=== PATIENT | female | born 1950 | race Caucasian/White ===

== ENCOUNTER 2024-01-31 10:00 | Day surgery (SDC) | payer MEDICARE ==
[2024-01-26 11:11] VITALS: BP 116/82
[~2024-01-31] VITALS: Ht 152.4 cm; Wt 71.4 kg
[~2024-01-31 10:00] MED LIST: ALLEGRA ALLERG180 MG PO; ATIVAN1 MG PO; ATORVASTATIN CA40 MG PO; CEFAZOLIN SODIUM 2 GM/20 ML SYR IV SCH; CIPROFLOXACIN500 MG PO; DULOXETINE HCL30 MG PO; IBLOOD GLUCOSE TEST STRIP 1 EA TEST VI PRN; LACTATED RINGER'S 1,000 ML IV SCH; LIDOCAINE HCL 1% 5 ML SDV INJ ONE; LIDOCAINE HCL 2% 5 ML SDV ONE; MACROBID 100 M100 MG PO; ONDANSETRON ODT8 MG PO; PREDNISONE20 MG PO; STOOL SOFTENER100 M1 PO; TRAMADOL HCL50 MG PO; propofoL 200 MG/20 ML VIAL ONE
[2024-01-31 10:32] VITALS: BP 126/77
[2024-01-31] MEDS ORDERED: ROCURONIUM BROMIDE 50 MG/5 ML SYR ONE (11:00)
[2024-01-31] MEDS ORDERED: iopamidoL 30 ML VIAL ONE (12:42)
[2024-01-31] MEDS ORDERED: OXYCODONE/APAP 5/325 TAB PO PRN (13:00)
[2024-01-31] MEDS ORDERED: TRAMADOL HCL 50 MG TAB PO PRN (13:00)
[2024-01-31] MEDS ORDERED: ondansetron HCL 4 MG/2 ML VIAL IV PRN (13:00)
[2024-01-31] MEDS ORDERED: HYDROmorphone HCL 1 MG/ML SYR IV PRN (13:00)
[2024-01-31] MEDS ORDERED: PHENAZOPYRIDINE HCL 95 MG TAB PO PRN (13:00)
[2024-01-31] MEDS ORDERED: fentaNYL citrate 100 MCG/2 ML VIAL ONE ×2 (13:10→14:06)
[2024-01-31] MEDS ORDERED: ondansetron HCL 4 MG/2 ML VIAL ONE (13:27)
[2024-01-31] MEDS ORDERED: ePHEDrine sulfate 50 MG/ML AMP ONE (13:29)
[2024-01-31] MEDS ORDERED: LACTATED RINGER'S 1,000 ML IV ONE (13:41)
[2024-01-31] MEDS ORDERED: SUGAMMADEX SODIUM 200 MG/2 ML ML ONE (14:12)
--- NOTE | 2024-01-31 14:43 | NUR ---
01/31/24 1443 JOSIAS ROSE 1428 PT ARRIVED TO PACU VIA STREACHER. REPORT TAKEN FROM DANAE PARRISH CRNA. PT AWAKE AND HAS NATURAL AIRWAY. PT RESPIRATIONS EVEN AND UNLABORED. PT ON RIGHT SIDE, AND SITTING UP. PT REPORTS NO PAIN OR NAUSEA AT THIS TIME. ALL MONITORS ATTACHED. 1440 PT SPOKE WITH DOCTOR. PT REPORTS 3/10 PAIN IN SURGICAL AREA, PT REPORTS THIS BEING TOLERABLE. PT REPORTS NO NAUSEA.
[2024-01-31 15:01] VITALS: BP 127/72
--- NOTE | 2024-01-31 15:06 | NUR ---
PT BACK TO ROOM FROM PACU ON RA. RECEIVED REPORT FROM JOSIAS CARRANZA. PT IS AWAKE. RESP EVEN AND UNLABORED. PROVIDED PT WITH CRACKERS, JELLO, AND WATER. PT WOULD LIKE SOMETHING FOR PAIN. AT BEDSIDE. CALL LIGHT WITHIN REACH.
--- NOTE | 2024-01-31 15:10 | NUR ---
1509-PAIN MEDICATION GIVEN PER EMAR. PT EATING JELLO. WARM BLANKET PROVIDED. AT BEDSIDE. CALL LIGHT WITHIN REACH.
[2024-01-31 15:59] VITALS: BP 135/79
--- NOTE | 2024-01-31 16:00 | NUR ---
AT THIS TIME PATIENT HAS MET ALL OF HER DISCHARGE CRITERIA AND SHE EXPRESSES THAT SHE FEELS READY TO GO HOME. PAIN IS UNDER CONTROL AND AT A TOLERABLE LEVEL FOR HER. SHE HAS BEEN EATING AND DRINKING WITHOUT NAUSEA/VOMITING. SHE HAS AMBULATED. PATIENT HAS A SEARS CATHETER IN PLACE AND IT IS DRAINING LIGHT PINK URINE. THIS RN EMPTIED SEARS CATHETER BAG PRIOR TO DISCHARGE (SEE I/O'S). SEARS CATHETER WAS SECURED TO PATIENTS RIGHT LEG WITH SECUREMENT DEVICE AND PATIENT WAS ALLOWED TO GET DRESSED.
--- NOTE | 2024-01-31 16:15 | NUR ---
Discharge instructions were reviewed with patient and spouse. All questions answered and both patient and spouse expressed understanding of all instructions. I explained the need for the urinary catheter bag to be below the level of the bladder for adequat draining. Paper prescription was given to patient upon discharge and explained that it would need to be taken to a pharmacy in order to get filled and they understood. Patient was then discharged from the unit via wheelchair. to take patient home via private vehicle.
--- NOTE | 2024-02-03 16:27 | PATH ---
[facility] [address] [place], [place] [address] Signed SPECIMEN(S): A BLADDER LESION SPECIMEN SOURCE: A. BLADDER LESION CLINICAL HISTORY: Pre: Bladder tumor. Post: TURBT. FINAL PATHOLOGIC DIAGNOSIS: Bladder lesion, TURBT: - Fragments of muscularis propria with chronic inflammation and focal calcification. - Neegative for evidence of residual invasive urothelial carcinoma on these sections. - Inflamed scant urothelium and squamous epithelium with mild atypical features. COMMENT: As part of [facility] Quality Improvement Program, this case was reviewed by another member of our pathology staff. JVR:amado MICROSCOPIC EXAMINATION: Histologic sections of all submitted blocks are examined by light microscopy. These findings, together with the gross examination, support the pathologic diagnosis. Immunohistochemical stains are performed with appropriate controls on block A1 and show the following: - Cytokeratin AE1/AE3: Negative for occult carcinoma. - Cytokeratin 20: Negative for occult carcinoma. JVR:dks GROSS DESCRIPTION: The specimen, labeled and designated "Bj bladder lesion," is received in formalin and consists of irregular shaped pink-guevara friable tissue fragments that aggregate measure 2.5 x 0.6 x 0.2 cm. Entirely submitted in (A1). JS (under the direct supervision of a pathologist) The Gross Description was prepared using a voice recognition system. The report was reviewed for accuracy; however, sound-alike word errors, addition and/or deletions may occur. If there is any PATIENT NAME: TERRENCE GRIMALDO PATHOLOGY DATE OF : 48 REPORT #: [id number] PHYSICIAN: KRYSTEN CUNHA PCP: RENE COY REPORT IS CONFIDENTIAL AND NOT TO BE RELEASED WITHOUT AUTHORIZATION [facility] [address] [place] [place] [address] Signed question about this report, please contact Client Services. ADDITIONAL NOTES: Immunohistochemical and/or in situ hybridization studies were performed on this case with the appropriate positive controls that react as expected. This test was developed and its performance characteristics determined by [facility]. It has not been cleared or approved by the U.S. Food and Drug Administration. The FDA has determined that such clearance or approval is not necessary. This test is used for clinical purposes. It should not be regarded as investigational or for research. [facility] is certified under the Clinical Laboratory Improvement Amendments of 1988 (CLIA) as qualified to perform high complexity clinical laboratory testing. This assay has not been validated for specimens that have been decalcified. PERFORMING LABORATORY: Technical component was performed by [facility], [address] [place] [id number] (CLIA# [id number]). Professional interpretation was performed by [facility] - [facility], [address] [place] [id number] (CLIA#: [id number]). Diagnostician: Tobin Hawkins MD Pathologist Electronically Signed 02/03/2024 Copies: ~ PATIENT NAME: TERRENCE GRIMALDO PATHOLOGY DATE OF : 48 REPORT #: [id number] PHYSICIAN: KRYSTEN CUNHA PCP: RENE COY REPORT IS CONFIDENTIAL AND NOT TO BE RELEASED WITHOUT AUTHORIZATION
== END 2024-01-31 16:20 | disposition home or self-care (01) ==
LOC: DS 10:00 → OPS 10:00 → DS 14:10 → OPS 16:20
PROVIDERS: ATTEND Urology
PROC: 0WHR8YZ Insertion of Other Device into Genitourinary Tract, Via Natural or Artificial Opening Endoscopic (ICD-10-PCS; 2024-01-31)
PROC: 0TBB8ZX Excision of Bladder, Via Natural or Artificial Opening Endoscopic, Diagnostic (ICD-10-PCS; principal; 2024-01-31 11:40)
DX: C67.8 Malignant neoplasm of overlapping sites of bladder (principal); N39.0 Urinary tract infection, site not specified; N13.30 Unspecified hydronephrosis; Z79.899 Other long term (current) drug therapy; E78.5 Hyperlipidemia, unspecified; M06.9 Rheumatoid arthritis, unspecified; Z87.891 Personal history of nicotine dependence
CPT/HCPCS: 00910; 76000; 88305; 88307; 88341; 88342; C1769; J0690; J2001; J2405; J2704; J3010; J3490; J7121

== ENCOUNTER 2024-02-28 16:10 | Emergency (ER) | payer MEDICARE ==
[~2024-02-28] VITALS: Ht 152.4 cm; Wt 69.6 kg
[~2024-02-28 16:10] MED LIST changes: -CEFAZOLIN SODIUM 2 GM/20 ML SYR IV SCH; -IBLOOD GLUCOSE TEST STRIP 1 EA TEST VI PRN; -LACTATED RINGER'S 1,000 ML IV SCH; -LIDOCAINE HCL 1% 5 ML SDV INJ ONE; -LIDOCAINE HCL 2% 5 ML SDV ONE; -propofoL 200 MG/20 ML VIAL ONE
[2024-02-28 19:05] LABS: BASOPHILS 0.5 % (0-2); EOSINOPHILS 1.3 % (0-6); HEMATOCRIT 32.7 % (35.0-50.0); HEMOGLOBIN 10.6 g/dL (12.0-18.0); LYMPHOCYTES 10.4 % (24-44); MCH 28.8 (27-36); MCHC 32.3 g/dl (30-36); MCV 89.3 fl (81-99); NEUTROPHILS 78.8 % (39-80); PLATELET COUNT 396 K/uL (140-440); RBC 3.67 M/ul (4.3-5.7); RDW 14.4 (10.5-15.0)
[2024-02-28 19:26] LABS: ALBUMIN 2.2 g/dL (3.4-5.0); ALBUMIN/GLOBULIN RATIO 0.47 (1.1-2.4); ANION GAP 15.5 (7-21); BILIRUBIN, TOTAL 0.8 ng/dL (0.2-1.0); BUN/CREATININE RATIO 11.76 (6.0-28.6); CALCIUM 8.6 mg/dL (8.5-10.1); CREATININE, SERUM 1.7 mg/dL (0.55-1.02); POTASSIUM 3.5 mmol/L (3.5-5.1); PROTEIN, TOTAL 6.9 g/dL (6.4-8.2)
[2024-02-28] MEDS ORDERED: SODIUM CHLORIDE 0.9% 500 ML IV PRN (20:15)
[2024-02-28] MEDS ORDERED: HYDROCODON-ACE1 EA10 PO (22:42)
[2024-02-28] MEDS ORDERED: HYDROCODONE BIT/ACETAMINOPHEN 5/325 MG 1 TAB HOME.PACK PO ONE (22:45)
[2024-02-28 23:39] VITALS: BP 112/45
== END 2024-02-28 23:40 | disposition home or self-care (01) ==
LOC: ED 16:10
PROVIDERS: Emergency Medicine
DX: C78.7 Secondary malignant neoplasm of liver and intrahepatic bile duct (principal); C67.9 Malignant neoplasm of bladder, unspecified; Z79.899 Other long term (current) drug therapy
CPT/HCPCS: 36415; 74177; 80053; 85025; 99284-25; A9270; J7040; Q9967